=== PATIENT | male | born 1975 | race Caucasian/White ===

== ENCOUNTER 2020-10-06 18:18 | Inpatient (IN) | payer OTHER ==
[~2020-10-06] VITALS: Ht 188 cm; Wt 88.7 kg
--- NOTE | 2020-10-06 18:20 | NUR ---
LENNIE KHALIL [place]. FRIEND CALLED BECAUSE HE WAS MISSING FOR A COUPLE DAYS. +METH USE TODAY AND PAST SEVERAL DAYS. BLOOD SUGAR 124 PER EMS. PT SLIGHTLY ALTERED/DISORIENTED ON SCENE, BUT PT A&OX3-4 UPON ARRIVAL TO ED. TACHY, HR 100s, SLIGHLTY DIAPHORETIC. PT STATES, "I'M NEVER DOING THAT STUFF AGAIN". EKG DONE UPON ARRIVAL. PT ON ALL MONITORS. DENIES CHEST PAIN OR SOB. Addendum: 10/06/20 at 2011 by HBENSON AT ONE POINT, PT TELLS RN "THE ONLY THING I DID TODAY WAS DRINK". THEN LATER, PT STATES, "I ALSO SWALLOWED SOME METH". PT ASKING, "YOU'RE NOT GOING TO GET THE GRAPE PRUNER INVOLVED, RIGHT?" RE-ASSURED PT, RV'WD POC WITH HIM.
--- NOTE | 2020-10-06 18:22 | NUR ---
PER SIMRAN, PT FRIEND TOOK DOG AND HIS CAR IS LOCATED [place] THE [address] [place]ING [place]OWARDS [facility].
[2020-10-06 19:00] LABS: BASOPHILS % (AUTO) 0 % (0-1); EOSINOPHILS % (AUTO) 0 % (1-7); LYMPHOCYTES % (AUTO) 4 % (22-44); MEAN CORPUSCULAR HEMOGLOBIN 29.4 pg (27.5-34.5); MEAN CORPUSCULAR HGB CONC 34.5 g/dL (33.2-36.2); MEAN PLATELET VOLUME 6.7 fL (7.4-10.4); MONOCYTES % (AUTO) 5 % (2-9); NEUTROPHILS % (AUTO) 91 % (42-75); PLATELET COUNT 340 x10^3/uL (130-400); RED CELL DISTRIBUTION WIDTH 13.4 % (9.4-14.8)
[2020-10-06] MEDS ORDERED: ONDANSETRON 2MG/ML, 2ML IVPush ONE (19:00)
[2020-10-06] MEDS ORDERED: THIAMINE 100MG TABLET PO ONE (19:00)
[2020-10-06] MEDS ORDERED: SODIUM CHLORIDE 0.9% 1,000 ML IV ONE (19:00)
[2020-10-06] MEDS ORDERED: SODIUM CHLORIDE 0.9% 1,000ML IVBOLUS ONE (19:00)
[2020-10-06] MEDS ORDERED: LORazepam 2 MG/ML, 1ML IVPush ONE (19:00)
[2020-10-06] MEDS ORDERED: SODIUM CHLORIDE FLUSH 10ML SYR IVF ONE (19:00)
--- NOTE | 2020-10-06 19:00 | NUR ---
PT TO IMAGING VIA [facility].
[2020-10-06 19:11] LABS: ALANINE AMINOTRANSFERASE 31 U/L (12-78); ALBUMIN 4.1 g/dL (3.4-5.0); ANION GAP 10 mmol/L (5-15); CALCIUM 8.8 mg/dL (8.5-10.1); CHLORIDE 112 mmol/L (98-107); CREATININE 1.48 mg/dL (0.7-1.3)
[2020-10-06 19:12] LABS: SALICYLATE LEVEL < 1.7 mg/dL (2.8-20.0)
[2020-10-06 19:17] LABS: ALKALINE PHOSPHATASE 60 U/L (45-117); BILIRUBIN,TOTAL 1.6 mg/dL (0.2-1.0); TOTAL PROTEIN 7.3 g/dL (6.4-8.2)
--- NOTE | 2020-10-06 19:17 | NUR ---
PT RETURNS FROM IMAGING.
[2020-10-06 19:23] LABS: MD SCAN
--- NOTE | 2020-10-06 19:30 | NUR ---
ORDER ENTRY REPRESENTATIVE WAS IN ROOM WITH PT WHILE RN WENT TO GET BSC. PT C/O NEED TO VOID AND HAVE BM. PT WAS SITTING IN WHEELCHAIR. ORDER ENTRY REPRESENTATIVE LEFT ROOM AND PT GOT OUT OF WHEELCHAIR AND FELL ON HIS BOTTOM ON FLOOR. NO INJURIES NOTED. ERP AND RN TO ROOM IMMEDIATELY AND ASSISTED PT BACK TO BED. ERP AWARE THAT PT UNABLE TO URINATE AT THIS TIME.
[2020-10-06] MEDS ORDERED: ONDANSETRON 2MG/ML, 2ML ONE (19:39)
[2020-10-06] MEDS ORDERED: LORazepam 2 MG/ML, 1ML ONE (19:39)
[2020-10-06] MEDS ORDERED: THIAMINE 100MG TABLET ONE (19:39)
--- NOTE | 2020-10-06 19:40 | NUR ---
PT MEDICATED PER ORDERS, IVF INFUSING. REMINDED PT NOT TO GET OUT OF BED. IN VIEW OF NURSE'S STATION.
[2020-10-06] MEDS ORDERED: SODIUM CHLORIDE FLUSH 10ML SYR IVF PRN (20:00)
[2020-10-06 21:50] VITALS: BP 113/76
[2020-10-06] MEDS ORDERED: FOLIC ACID 1 MG TABLET PO ONE (22:00)
[2020-10-06] MEDS ORDERED: ALUMINUM/MAG/SIMETHICONE 30 ML UDC PO PRN (22:00)
[2020-10-06] MEDS ORDERED: DOCUSATE 100 MG CAPSULE PO PRN (22:00)
[2020-10-06] MEDS ORDERED: LABETALOL 5MG/ML, 20ML IV PRN (22:00)
[2020-10-06] MEDS ORDERED: PROMETHAZINE 25 MG/ML, 1ML IM PRN (22:00)
[2020-10-06] MEDS ORDERED: LORazepam 2 MG/ML, 1ML IV PRN ×3 (22:00)
[2020-10-06] MEDS: LORazepam 2 MG/ML, 1ML IV PRN (23:25)
[2020-10-06] MEDS: POTASSIUM CHLORIDE 20 MEQ, MAGNESIUM SULFATE 1 GM, MVI ADULT 10 ML, THIAMINE 200 MG, FO... IV SCH (23:25)
[2020-10-07] MEDS: LORazepam 2 MG/ML, 1ML IV PRN ×5 (00:30→19:17)
[2020-10-07 00:52] VITALS: BP 134/71
[2020-10-07] MEDS: HEPARIN 5,000 UNITS/ML, 1ML SQ SCH ×3 (00:52→16:35)
[2020-10-07 05:00] LABS: BASOPHILS % (AUTO) 0 % (0-1); EOSINOPHILS % (AUTO) 0 % (1-7); LYMPHOCYTES % (AUTO) 7 % (22-44); MEAN CORPUSCULAR HEMOGLOBIN 29.5 pg (27.5-34.5); MEAN CORPUSCULAR HGB CONC 34.1 g/dL (33.2-36.2); MEAN PLATELET VOLUME 6.7 fL (7.4-10.4); MONOCYTES % (AUTO) 9 % (2-9); NEUTROPHILS % (AUTO) 84 % (42-75); PLATELET COUNT 303 x10^3/uL (130-400); RED BLOOD COUNT 4.68 x10^6/uL (4.38-5.82); RED CELL DISTRIBUTION WIDTH 13.4 % (9.4-14.8)
[2020-10-07 05:05] LABS: ALANINE AMINOTRANSFERASE 66 U/L (12-78); ALBUMIN 3.6 g/dL (3.4-5.0); ANION GAP 7 mmol/L (5-15); CALCIUM 8.2 mg/dL (8.5-10.1); CHLORIDE 111 mmol/L (98-107)
[2020-10-07 05:08] LABS: ALKALINE PHOSPHATASE 56 U/L (45-117); BILIRUBIN,TOTAL 1.8 mg/dL (0.2-1.0); CREATININE 1.03 mg/dL (0.7-1.3)
[2020-10-07 05:47] LABS: MD SCAN
[2020-10-07 07:29] VITALS: BP 131/80
[2020-10-07] MEDS ORDERED: FOLIC ACID 1 MG TABLET PO SCH (09:00)
[2020-10-07 10:58] LABS: MICROSCOPIC AUTO
[2020-10-07 11:08] LABS: AMPHETAMINE SCREEN, URINE Positive (Negative); BARBITURATE SCREEN, URINE Negative (Negative); BENZODIAZEPINE SCREEN, URINE Negative (Negative); CANNABINOID SCREEN, URINE Negative (Negative); COCAINE SCREEN, URINE Negative (Negative); METHADONE SCREEN, URINE Negative (Negative); OPIATE SCREEN, URINE Negative (Negative)
[2020-10-07 12:04] VITALS: BP 127/75
[2020-10-07] MEDS ORDERED: OMNIPAQUE 350 MG/ML, 75ML BOTTLE ONE (14:21)
[2020-10-07] MEDS ORDERED: maalox/diphenh/lido/sucralfate 5 ML PO PRN (18:00)
[2020-10-07 19:14] VITALS: BP 124/81
[2020-10-07] MEDS: POTASSIUM CHLORIDE 20 MEQ, MAGNESIUM SULFATE 1 GM, MVI ADULT 10 ML, THIAMINE 200 MG, FO... IV SCH (23:19)
[2020-10-08] MEDS: HEPARIN 5,000 UNITS/ML, 1ML SQ SCH (00:30)
[2020-10-08 01:25] VITALS: BP 127/74
[2020-10-08 06:44] VITALS: BP 112/72
== END 2020-10-08 07:52 | disposition left against medical advice (07) | DRG 391 ==
LOC: ED 18:48 → 4EST 22:19
PROVIDERS: ADMIT Internal Medicine; ATTEND Hospitalist
DX: K29.20 Alcoholic gastritis without bleeding (principal); N17.0 Acute kidney failure with tubular necrosis; F10.239 Alcohol dependence with withdrawal, unspecified; R56.9 Unspecified convulsions; F10.20 Alcohol dependence, uncomplicated; D72.829 Elevated white blood cell count, unspecified; F15.10 Other stimulant abuse, uncomplicated; F17.200 Nicotine dependence, unspecified, uncomplicated; K29.00 Acute gastritis without bleeding; W01.0XXA Fall on same level from slipping, tripping and stumbling without subsequent striking against object, initial encounter; F41.9 Anxiety disorder, unspecified; Z79.899 Other long term (current) drug therapy; Z79.01 Long term (current) use of anticoagulants; Y93.89 Activity, other specified; Y92.091 Bathroom in other non-institutional residence as the place of occurrence of the external cause; Y99.8 Other external cause status
CPT/HCPCS: 36415; 70487; 74022; 80053; 80143; 80179; 80307; 80320; 81001; 83690; 83735; 85025; 87040; 93005; 96361; 96374; 99285; G0378; J1644; J2405; J3411; J3475; J3480; Q9967; G0480; J2060; J7030